=== PATIENT | female | born 1990 | race Two or more races ===

== ENCOUNTER 2016-11-05 20:24 | Inpatient (IN) | payer BC ==
[~2016-11-05] VITALS: Ht 157.5 cm; Wt 95.3 kg
[~2016-11-05 20:24] MED LIST: PREN0.01 PO
[2016-11-05] MEDS ORDERED: LACTATED RINGER'S 1000 ML INJ 1,000 ML IV PRN (20:26)
[2016-11-05] MEDS ORDERED: OXYTOCIN 30 UNITS-500ML PREMIX 500 ML IV ONE (20:30)
[2016-11-05] MEDS ORDERED: MINERAL OIL 10 ML VIAL TOPICAL PRN (20:30)
[2016-11-05] MEDS ORDERED: LIDOCAINE HCL 1% 50 ML VIAL INFIL PRN (20:30)
[2016-11-05] MEDS ORDERED: DINOPROSTONE 10 MG VAG INSERT VAGINAL ONE (20:30)
[2016-11-05] MEDS ORDERED: SODIUM CHLORID 0.9% 500 ML INJ 500 ML IV PRN (20:30)
[2016-11-05] MEDS ORDERED: LIDOCAINE HCL 1% 50 ML VIAL I-DERMAL PRN (20:30)
[2016-11-05] MEDS ORDERED: CITRIC ACID-SODIUM CITRATE LIQ 30 ML UDC PO SCH (20:30)
[2016-11-05] MEDS ORDERED: SODIUM CHLOR 0.9% 1000 ML INJ 1,000 ML IV PRN (20:46)
--- NOTE | 2016-11-05 20:46 | HHI.HP ---
HPI Chief Complaint decreassed movement Date Seen: Nov 05, 2016 Travel History International Travel<30 Days: No Contact w/Intl Traveler<30Days: No Known Affected Area: No History of Present Illness HPI 26 yo p0 with iup at 37 wk presented to clinic today with several complaints. She has ghtn and has been monitoring bp at home, she was seen in triage 2 days ago. She turned in a 24 hour urine today.. sbp 140's on home monitoring. she also has c/o b lurry vision and headache intermittently. She has felt weak , fatigued and nauseated. She feels so tired and weak she states that she is afraid to ambulate or do anything on her own. She has additionally had decreased movement, bpp 8/8 in office. Para: 0 : 2 Miscarriage: 1 History Past Medical History Narrative Medical asthma varicella non immune Obstetric History Obstetric History cab Past Surgical History Narrative Surgical adenoids,cholecystectomy, eustation tube placement Family History Family History: Negative Social History Alcohol Use: No Tobacco Use: No Substance Abuse: No Allergies-Medications (Allergen,Severity, Reaction): Coded Allergies: No Known Allergies (Unverified , 11/08/16) Home Meds Reported Medications Ranitidine (Zantac 75)75 Mg [id number] Mg PO BID Ref 0 Take 30 to 60 minutes before eating food or drinking beverages that cause heartburn. 11/06/16 Albuterol 18 GM Inh (Ventolin Hfa 18 GM Inh)90 Mcg/Act Aer2 Puff INH Q4H PRN ( SHORTNESS OF BREATH) #1 INHALER Ref 0 11/06/16 Vitamins 1 Tab PO 08/07/16 Review of Systems General / Constitutional: No: Fever, Weight Gain, Chills, Other Eyes: Blurred Vision, Visual changes, No: Diploplia, Pain, Photophobia HENT: Headaches, No: Vertigo, Lightheadedness Cardiovascular: No: Irregular Rhythm, Chest Pain or Discomfort, Palpitations, Tachycardia, Syncope, Varicosities, Edema, Cyanosis Respiratory: No: Cough, Short of Breath, Other Gastrointestinal: Nausea, No: Vomiting, Diarrhea Genitourinary: No: Decreased Urinary Output, Oliguria Musculoskeletal: No: Limited ROM, Weakness, Cramping, Edema, Pain Skin: No Rash, No Itching, No Dryness, No Lumps, No Change in Pigmentation, No Change in Nails, No Alopecia, No Lesions Neurologic: No: Weakness, Dizziness, Syncope, Focal Abnormalities, Headache, Slurred Speech, Seizures Psychiatric: No: Depression, Suicidal Ideations, Homicidal Ideation Endocrine: No: Heat Intolerance, Cold Intolerance, Polydipsia, Polyuria, Other Physical Exam Narrative GENERAL: Well-nourished, well-developed patient. SKIN: Warm and dry. HEAD: Normocephalic and atraumatic. EYES: No scleral icterus. No injection or drainage. ENT: No nasal drainage noted. Mucous membranes pink. Airway patent. NECK: Supple, trachea midline. No JVD. CARDIOVASCULAR: Regular rate and rhythm without murmurs, gallops, or rubs. RESPIRATORY: Breath sounds equal bilaterally. No accessory muscle use. BREASTS: Bilateral exam showed no masses , no retractions, no nipple discharge. ABDOMEN/GI: Abdomen soft, non-tender, bowel sounds present, no rebound, no guarding Gravid to [-] weeks size Fundal Height: 40 GENITOURINARY: External Genitalia: intact and normal in appearance cl/th/hi Presentation: ceph Membranes: [intact Uterine Contractions: irreg FHT's: Category: I EXTREMITIES: No cyanosis or edema. BACK: Nontender without obvious deformity. No CVA tenderness. NEUROLOGICAL: Awake and alert. Motor and sensory grossly within normal limits. Five out of 5 muscle strength in all muscle groups. Normal speech. Data Data Vital Signs Reviewed: Yes Orders Admit To Inpatient (11/05/16 ) Vital Signs (Adult) .Per protocol (11/05/16 20:26) Activity Oob Ad Jacquie (11/05/16 20:26) ^ Heart (11/05/16 20:26) ^ Amnioinfusion (11/05/16 20:26) Urinary Catheter Management .ONCE (11/05/16 20:26) Lactated Ringer's 1000 Ml Inj (Lr 1000 M (11/05/16 20:26) Lactated Ringer's 1000 Ml Inj (Lr 1000 M (11/05/16 20:26) Sodium Chlorid 0.9% 500 Ml Inj (Ns 500 M (11/05/16 20:30) Sodium Chlor 0.9% 1000 Ml Inj (Ns 1000 M (11/05/16 20:46) Lidocaine 1% Inj (50 Ml) (Xylocaine 1% I (11/05/16 20:30) Citric Acid-Sodium Citrate Liq (Bicitra (11/05/16 20:30) Fentanyl Inj (Fentanyl Inj) (11/05/16 20:30) Fentanyl Inj (Fentanyl Inj) (11/05/16 20:30) Complete Blood Count With Diff (11/05/16 20:26) Hold Clot (11/05/16 20:26) Abo/Rh Blood Type (11/05/16 20:26) Urinalysis - C+S If Indicated (11/05/16 20:26) Resp Oxygen Non Rebreathe Mask (11/05/16 ) ^ Epidural / Intrathecal Infus (11/05/16 20:26) Oxytocin 30 Units-500ml Premix (Pitocin (11/05/16 20:30) Lidocaine 1% Inj (50 Ml) (Xylocaine 1% I (11/05/16 20:30) Light Mineral Oil (Muri-Lube Oil) (11/05/16 20:30) Diet Liquid (11/06/16 Breakfast) Activity Oob Ad Jacquie (11/05/16 20:26) ^ Labor Induction (11/05/16 20:26) ^ Vaginal Insert (11/05/16 20:26) ^ Vaginal Lavage (11/05/16 20:26) ^ Heart (11/05/16 20:26) Dinoprostone Vag Insert (Cervidil Vag In (11/05/16 20:30) Inpatient Certification (11/05/16 ) Specimen To Be Collected PRN (11/05/16 20:26) Assessment/Plan Problem List: (1) Decreased movement affecting management of in third trimester (2) Abnormal glucose tolerance affecting , antepartum (3) Gestational [-induced] hypertension without significant proteinuria , third trimester Assessment and Plan 26 yo P0 with iup at 37 wk being admitted for iol secondary to gestational hypertension, decreased movement. 1 iol will start with cervidil 2 ghtn will order labs and watch bp, signs of severity 3 abn 1 hr gct, neg 3 hr gtt 4 fetus cephalic, decreased fm, bpp 8/8 in clinic Agutsina Flores MD Nov 05, 2016 20:46
[2016-11-05 20:52] VITALS: TEMP 98.3
[2016-11-05 20:54] VITALS: BP 139/78; PULSE 92
[2016-11-05 21:00] VITALS: RESP 18
[2016-11-05] MEDS: LACTATED RINGER'S 1000 ML INJ 1,000 ML IV SCH (21:47)
[2016-11-05 22:16] LABS: BACTERIA, URINE RARE /hpf; BLOOD, URINE NEG (NEG); COMMENT (UR) CULT NOT INDICATED; CULTURE IF INDICATED CULT NOT INDICATED; GLUCOSE,URINE NEG (NEG); KETONE, URINE NEG (NEG); MUCUS URINE FEW /lpf (OCC); NITRITE,URINE NEG (NEG); PH, URINE 6.5 (5.0-8.5); SQUAMOUS EPITHELIAL CELL URINE 3 /hpf (0-5); URINE COLOR YELLOW (YELLW/STRAW)
[2016-11-05 22:19] LABS: AUTOMATED NEUTROPHIL # 6.6 TH/MM3 (1.8-7.7); BASOPHIL % 0.3 % (0.0-2.0); EOSINOPHIL # 0.1 TH/MM3 (0-0.4); EOSINOPHIL % 0.5 % (0.0-4.0); HEMATOCRIT 33.2 % (35.0-46.0); HEMO FLAGS DIFF FINAL; LYMPHOCYTE # 2.5 TH/MM3 (1.0-4.8); MEAN CELL VOLUME 84.8 FL (80.0-100.0); MEAN CORPUSCULAR HEMOGLOBIN 28.4 PG (27.0-34.0); MEAN CORPUSCULAR HGB CONC 33.6 % (32.0-36.0); MONO % 8.8 % (0.0-8.0); NEUT % 65.4 % (16.0-70.0); PLATELET COUNT 272 TH/MM3 (150-450); RED BLOOD COUNT 3.92 MIL/MM3 (4.00-5.30); RED CELL DISTRIBUTION WIDTH 13.8 % (11.6-17.2); WHITE BLOOD COUNT 10.1 TH/MM3 (4.0-11.0)
[2016-11-05 22:40] LABS: ALKALINE PHOSPHATASE 170 U/L (45-117); ALT (GPT) 32 U/L (10-53); ANION GAP 7 MEQ/L (5-15); AST (GOT) 15 U/L (15-37); BICARBONATE 24.7 MEQ/L (21.0-32.0); BLOOD UREA NITROGEN 12 MG/DL (7-18); CHLORIDE 104 MEQ/L (98-107); GLOMERULAR FILTRATION RATE 121 ML/MIN (>89); POTASSIUM 4.2 MEQ/L (3.5-5.1); SODIUM (NA) 136 MEQ/L (136-145); TOTAL BILIRUBIN ADULT 0.1 MG/DL (0.2-1.0)
[2016-11-05] MEDS ORDERED: ONDANSETRON HCL 4 MG/2 ML VIAL ONE (23:36)
[2016-11-06] VITALS (37 sets, daily range): BP systolic 102–145; BP diastolic 42–84; PULSE 61–110; RESP 16–18; TEMP 97.7–98.3
[2016-11-06] MEDS ORDERED: diphenhydrAMINE HCL 50 MG/ML VIAL IV ONE ×2 (00:10→00:45)
[2016-11-06] MEDS ORDERED: diphenhydrAMINE HCL 50 MG/ML VIAL ONE (00:36)
[2016-11-06] MEDS ORDERED: OXYTOCIN 30 UNITS/NS 500ML PREMIX IV SCH ×3 (00:45→06:00)
[2016-11-06] MEDS ORDERED: ONDANSETRON HCL 4 MG/2 ML VIAL IV PUSH PRN (00:45)
[2016-11-06] MEDS ORDERED: fentaNYL 2MCG-BUPIV 0.125% INJ 100 ML ONE (00:55)
[2016-11-06] MEDS ORDERED: NO SYSTEM NARCOTICS XX PRN (02:00)
[2016-11-06] MEDS ORDERED: ePHEDrine/NS 50 MG/5 ML SYR IV PRN (02:00)
[2016-11-06] MEDS ORDERED: DO NOT ADMINISTER ANTICOAGULANTS XX PRN (02:00)
[2016-11-06] MEDS: LACTATED RINGER'S 1000 ML INJ 1,000 ML IV SCH ×2 (04:26→20:19)
[2016-11-06] MEDS ORDERED: VENTAER INH (04:59)
[2016-11-06] MEDS ORDERED: ZANTTAB9 PO (05:00)
[2016-11-06] MEDS: fentaNYL 2MCG-BUPIV 0.125% INJ 100 ML EPIDURAL SCH (20:19)
[2016-11-07] MEDS: LACTATED RINGER'S 1000 ML INJ 1,000 ML IV SCH ×2 (01:51→07:44)
[2016-11-07] MEDS: fentaNYL 2MCG-BUPIV 0.125% INJ 100 ML EPIDURAL SCH ×2 (01:51→07:44)
--- NOTE | 2016-11-07 08:54 | PD.LABORPN ---
Subjective Subjective Late entry, note for yesterday's care (11/06/16) pt denies CHAVEZ, vision changes, edema, RUQ pain or nausea; feeling irregular contractions, no LOF or VB, good FM, pain minimal with epidural in place Objective Vital Signs Vital Signs Date Time Temp Pulse Resp B/P Pulse Ox O2 Delivery O2 Flow Rate FiO2 11/07/16 01:52 16 11/07/16 01:51 16 Objective Pelvic Exam: Cervix: [posterior] Dilatation: [4-5] Effacement: [50] Station: [-3] Presentation: [vtx] Membranes: [intact Uterine Contractions: [q2-4 min] FHT's: Category: [I] Baseline: [130s] Reactive: [y] Variability: [y] Decels: [n] Assessment/Plan Problem List: (1) Gestational [-induced] hypertension without significant proteinuria , third trimester (2) Decreased movement affecting management of in third trimester (3) Abnormal glucose tolerance affecting , antepartum Assessment and Plan 26 yo at 37w2d, admit 11/05/[address] Flores for new diagnosis gestational hypertension and concerning symptoms 1) GHTN: admitted for labor induction due to new diagnosis and symptoms, started with cervidil overnight but had to be removed immediately due to pt c/o "burning pain"; suspect possible allergy; pitocin started overnight, pt with minimal cervical change, continue induction 2) varicella non-immune 3) abnl 1hr GTT, 3hr wnl 4) GBS neg 5) mild asthma, albuterol INH prn 6) status: female, vertex, Cat I tracing Evy Szymanski MD Nov 07, 2016 08:54
[2016-11-07] MEDS ORDERED: ALUMINUM/MAGNESIUM/SIMETH 30 ML CUP PO PRN (09:00)
[2016-11-07] MEDS ORDERED: ACETAMINOPHEN 325 MG TAB PO PRN (09:00)
[2016-11-07] MEDS ORDERED: ZOLPIDEM TARTRATE 5 MG TAB PO PRN (09:00)
[2016-11-07] MEDS ORDERED: MULTIVIT/MIN/PREN/FOL AC/IRON PRENATAL TAB PO SCH (09:00)
--- NOTE | 2016-11-07 09:03 | HHI.PR ---
OFFICE COORDINATOR RECEPTIONIST Note Note To bedside to discuss plan of care with patient and : Pt admitted overnight 11/05/16 for new diagnosis in office of [place] with symptoms of headache, blurry vision, decreased movement. BP in office normal and no portein on dip; protein has fluctuated from none to trace in office. On admission patient's symptoms resolved with bedrest and BPs almost all completely normal. Pt did not tolerate cervidil insert overnight on admission so pitocin was started; after >36h of pitocin pt has had minimal change from 4-5/50/-3 station, is intact, Cat I tracing. Due to resolution of symptoms, Cat I tracing, no cervical change despite consistent contractions q3- 4 min over past 24 h, discussed with patient and option of stop labor induction, repeat 24h urine, make AP status, continue to monitor labs & BP and if signs of worsening will re-evaluate for delivery. patient and amenable to plan of care, will turn off and remove epidural, order heart healthy diet, transfer to AP. Evy Szymanski MD Nov 07, 2016 09:02
[2016-11-07 10:59] LABS: AUTOMATED NEUTROPHIL # 13.9 TH/MM3 (1.8-7.7); BASOPHIL % 0.3 % (0.0-2.0); HEMATOCRIT 37.2 % (35.0-46.0); HEMO FLAGS DIFF FINAL; LYMPH % 11.6 % (9.0-44.0); LYMPHOCYTE # 1.9 TH/MM3 (1.0-4.8); MEAN CELL VOLUME 84.4 FL (80.0-100.0); MEAN CORPUSCULAR HEMOGLOBIN 28.2 PG (27.0-34.0); MEAN CORPUSCULAR HGB CONC 33.5 % (32.0-36.0); MONO % 4.4 % (0.0-8.0); NEUT % 83.7 % (16.0-70.0); PLATELET COUNT 261 TH/MM3 (150-450); RED BLOOD COUNT 4.41 MIL/MM3 (4.00-5.30); RED CELL DISTRIBUTION WIDTH 14.3 % (11.6-17.2); WHITE BLOOD COUNT 16.6 TH/MM3 (4.0-11.0)
[2016-11-07 11:15] LABS: BICARBONATE 21.3 MEQ/L (21.0-32.0); POTASSIUM 3.6 MEQ/L (3.5-5.1); URIC ACID 5.7 MG/DL (2.6-6.0)
[2016-11-07 13:47] LABS: ALT (GPT) 47 U/L (10-53); AST (GOT) 32 U/L (15-37)
[2016-11-07] MEDS ORDERED: TERBUTALINE INJ 1 MG/ML AMP SQ PRN (20:45)
[2016-11-07] MEDS ORDERED: diphenhydrAMINE HCL 50 MG/ML VIAL IV ONE (20:45)
[2016-11-07] MEDS ORDERED: ACETAMINOPHEN 1000 MG/100 ML VIAL IV ONE (20:45)
[2016-11-07 21:34] LABS: AUTOMATED NEUTROPHIL # 11.1 TH/MM3 (1.8-7.7); BASOPHIL # 0.1 TH/MM3 (0-0.2); BASOPHIL % 0.4 % (0.0-2.0); EOSINOPHIL # 0.1 TH/MM3 (0-0.4); EOSINOPHIL % 0.4 % (0.0-4.0); HEMATOCRIT 33.6 % (35.0-46.0); HEMO FLAGS DIFF FINAL; LYMPH % 17.8 % (9.0-44.0); LYMPHOCYTE # 2.6 TH/MM3 (1.0-4.8); MEAN CELL VOLUME 83.3 FL (80.0-100.0); MEAN CORPUSCULAR HGB CONC 33.6 % (32.0-36.0); MONO % 5.2 % (0.0-8.0); NEUT % 76.2 % (16.0-70.0); PLATELET COUNT 242 TH/MM3 (150-450); RED BLOOD COUNT 4.03 MIL/MM3 (4.00-5.30); WHITE BLOOD COUNT 14.6 TH/MM3 (4.0-11.0)
[2016-11-07 22:08] LABS: ALKALINE PHOSPHATASE 180 U/L (45-117); ALT (GPT) 41 U/L (10-53); ANION GAP 8 MEQ/L (5-15); AST (GOT) 33 U/L (15-37); BICARBONATE 23.6 MEQ/L (21.0-32.0); BLOOD UREA NITROGEN 8 MG/DL (7-18); CHLORIDE 104 MEQ/L (98-107); GLOMERULAR FILTRATION RATE 110 ML/MIN (>89); SODIUM (NA) 136 MEQ/L (136-145); TOTAL BILIRUBIN ADULT 0.3 MG/DL (0.2-1.0)
[2016-11-07] MEDS ORDERED: LACTATED RINGER'S 1000 ML INJ 1,000 ML IV SCH (22:42)
[2016-11-07] MEDS ORDERED: LACTATED RINGER'S 1000 ML INJ 1,000 ML IV PRN (22:42)
[2016-11-07] MEDS ORDERED: OXYTOCIN 30 UNITS-500ML PREMIX 500 ML IV ONE (22:45)
--- NOTE | 2016-11-07 22:45 | HHI.PR ---
CERTIFIED NURSE AIDE Note Note Pt complains of labor pains, now elly q3 min. Repeat labs so no deterioration, BPs remain normal to mild range, no clear diagnosis yet of PreEclampsia. Continue 24h urine collection, at this time due to contractions and suspected labor will transfer from AP to labor, epidural ordered as needed for pain. Cat I tracing currently, expectant management in labor for now. Evy Szymanski MD Nov 07, 2016 22:45
[2016-11-07] MEDS ORDERED: fentaNYL 2MCG-BUPIV 0.125% INJ 100 ML ONE (23:28)
[2016-11-08] MEDS ORDERED: fentaNYL 2MCG-BUPIV 0.125% INJ 100 ML ONE ×2 (05:31→10:08)
[2016-11-08 09:55] LABS: CREAT 24 TIMED 55.1 MG/DL; URINE TOTAL PROTEIN TIMED 42.8 MG/DL
[2016-11-08 10:05] LABS: CALCIUM - URINE TIMED LESS THAN 5.0 MG/DL
[2016-11-08] MEDS ORDERED: OXYTOCIN 30 UNITS-500ML PREMIX 500 ML IV SCH (10:45)
[2016-11-08] MEDS ORDERED: LACTATED RINGER'S 1000 ML INJ 1,000 ML IV ONE (11:35)
--- NOTE | 2016-11-08 11:55 | PD.LABORPN ---
Subjective Subjective Pt feeling light headed. had CHAVEZ and blurry vision yesterday. She is not feeling contractions any more. Still has vaginal pain and burning despite epidural. Was crying with last vaginal exam. does not want any more vaginal exams. Does not want any more pain and would like to have a CD as she did not dilate with over 36 hour induction. Objective Objective Vitals 130-150's/80-90's Pelvic Exam: declined. cephalic, intact. FHT CAT I, no uterine contractions. GEN NAD RESP CTAB Reflexes brisk, no clonus Assessment/Plan Problem List: (1) Gestational [-induced] hypertension without significant proteinuria , third trimester (2) Decreased movement affecting management of in third trimester (3) Abnormal glucose tolerance affecting , antepartum Assessment and Plan 26 yo withiup at 37w3d admitted for iol for ghtn. Given pt had normalized BP and had made no progress with pitocin over 36 hour induction (she had allergic reaction to cervidil), she was made AP status for collection of 24 hour urine. She then developed contractions and was made labor status again. Since then, her bp has increased, she had an isolated DBP of 110, remainder of bp in mild range. 24 hour urine with over 900mg of protein. Given development of pre-eclampsia, pt failed attempted induction of labor, and pt desire for cd, will proceed with primary cd. R/B/A discussed with pt. AQA, consents signed on chart. Will give magnesium pp. Agustina Flores MD Nov 08, 2016 11:55
[2016-11-08] MEDS ORDERED: LACTATED RINGER'S 1000 ML INJ 1,000 ML IV SCH ×3 (12:05→20:06)
[2016-11-08] MEDS ORDERED: ceFAZolin 2 GM PREMIX 50 ML IV ONE (12:45)
[2016-11-08] MEDS ORDERED: CITRIC ACID-SODIUM CITRATE LIQ 30 ML UDC PO SCH (13:15)
[2016-11-08] MEDS ORDERED: OXYTOCIN 10 UNIT/ML AMP ONE (13:34)
[2016-11-08] MEDS ORDERED: EPIDURAL-DIPHENHYDRAMINE HCL 50 MG CAP PO PRN (14:00)
[2016-11-08] MEDS ORDERED: EPIDURAL-DIPHENHYDRAMINE HCL 50 MG/ML VIAL IV PUSH PRN (14:00)
[2016-11-08] MEDS ORDERED: EPIDURAL-NALOXONE HCL 0.4 MG/ML AMP IV PRN (14:00)
[2016-11-08] MEDS ORDERED: EPIDURAL-DO NOT ADMINISTER ANTICOAGULANTS XX PRN (14:00)
[2016-11-08] MEDS ORDERED: EPIDURAL-NO SYSTEMIC NARCOTICS XX PRN (14:00)
[2016-11-08] MEDS ORDERED: ONDANSETRON HCL 4 MG/2 ML VIAL ONE (14:14)
[2016-11-08] MEDS ORDERED: MORPHINE SULFATE PF 5 MG/10 ML VIAL ONE (14:14)
[2016-11-08] MEDS ORDERED: LACTATED RINGER'S 1,000 ML BAG IV ONE (14:43)
[2016-11-08] MEDS ORDERED: CALCIUM GLUCONATE 10% 1 GM/10 ML VIAL IV PUSH PRN (15:00)
[2016-11-08] MEDS ORDERED: SODIUM CHLORIDE 0.9% FLUSH 5 ML FLUSH IV PRN ×2 (15:00→15:15)
[2016-11-08] MEDS ORDERED: MAGNESIUM SULFATE 4 GM PREMIX 100 ML IV ONE (15:00)
--- NOTE | 2016-11-08 15:13 | PD.OB.DELI ---
Procedure Note Section Procedure Pre Op Diagnosis: (1) Pre-eclampsia during in third trimester, antepartum (2) Abnormal glucose tolerance affecting , antepartum (3) Failed induction of labor Post Op Diagnosis: (1) Pre-eclampsia during in third trimester, antepartum (2) Abnormal glucose tolerance affecting , antepartum (3) Failed induction of labor Performed by Agustina Flores Procedure: Primary Low Transverse Sec Indication for delivery: Other (failed iol) Informed consent obtained: For anesthesia, For procedure Confirmed correct: Patient, Procedure, Site, Time-out taken Anesthesia: Epidural Medication prior to procedure: As documented in eMAR Monitoring during procedure: Blood pressure monitoring, Pulse oximetry Urinary catheter: Inserted using sterile technique, To dependent drainage Sterile preparation: With 2% chlorexidine (Hibiclens) Position: Supine with wedge to right side, Supine with safety belt applied Operative Features Skin Incision: Pfannenstiel Uterine Incision: Low transverse w/knife / blunt ext Membranes Ruptured: Appearance of fluid (clear) Presentation: Other (OT) Delivery of infant: Uneventful, Other (0.75 cm laceration of head right) : Male One Minute : 8 Five Minute : 9 Weight: 2570g Status of infant: Viable, Cord blood Placenta delivered: Intact Medications: Antibiotics, Oxytocin Estimated blood loss: 500ml Procedure tolerated: Fair (Nitrous inhalation given for improved pain control) Maternal Condition: Stable Baby Complications: Laceration (right mandaeism, 0.75cmsuperficial, no bleeding after pressure applied) Condition: Stable Procedure in detail see dictation Agustina Flores MD Nov 08, 2016 15:13
[2016-11-08] MEDS ORDERED: SIMETHICONE 80 MG CHEWABLE TAB PO PRN (15:15)
[2016-11-08] MEDS ORDERED: ACETAMINOPHEN 325 MG TAB PO PRN (15:15)
[2016-11-08] MEDS ORDERED: OXYTOCIN 30 UNITS-500ML PREMIX 500 ML IV ONE (15:15)
[2016-11-08] MEDS ORDERED: ONDANSETRON HCL 4 MG/2 ML VIAL IV PUSH PRN (15:15)
[2016-11-08] MEDS ORDERED: ACETAMINOPHEN 1000 MG/100 ML VIAL IV ONE (15:15)
[2016-11-08] MEDS ORDERED: MAGNESIUM SULFATE 40 GM PREMIX 1,000 ML IV SCH (16:00)
[2016-11-08] MEDS ORDERED: SODIUM CHLORIDE 0.9% FLUSH 5 ML FLUSH IV SCH (21:00)
[2016-11-08] MEDS: SODIUM CHLORIDE 0.9% FLUSH 5 ML FLUSH IV SCH (21:00)
[2016-11-09] MEDS ORDERED: OXYTOCIN 30 UNITS-500ML PREMIX 500 ML IV PRN (01:15)
[2016-11-09 05:52] LABS: AUTOMATED NEUTROPHIL # 6.9 TH/MM3 (1.8-7.7); BASOPHIL % 0.1 % (0.0-2.0); EOSINOPHIL % 0.2 % (0.0-4.0); HEMATOCRIT 32.9 % (35.0-46.0); HEMO FLAGS DIFF FINAL; LYMPH % 15.6 % (9.0-44.0); LYMPHOCYTE # 1.4 TH/MM3 (1.0-4.8); MEAN CELL VOLUME 83.9 FL (80.0-100.0); MEAN CORPUSCULAR HEMOGLOBIN 28.7 PG (27.0-34.0); MEAN CORPUSCULAR HGB CONC 34.2 % (32.0-36.0); MONO % 5.9 % (0.0-8.0); NEUT % 78.2 % (16.0-70.0); PLATELET COUNT 211 TH/MM3 (150-450); RED BLOOD COUNT 3.93 MIL/MM3 (4.00-5.30); RED CELL DISTRIBUTION WIDTH 14.2 % (11.6-17.2); WHITE BLOOD COUNT 8.9 TH/MM3 (4.0-11.0)
[2016-11-09 06:27] LABS: BICARBONATE 24.7 MEQ/L (21.0-32.0); POTASSIUM 3.7 MEQ/L (3.5-5.1); TOTAL BILIRUBIN ADULT 0.3 MG/DL (0.2-1.0); URIC ACID 4.9 MG/DL (2.6-6.0)
[2016-11-09 06:32] LABS: CALCIUM-PROTEIN CORRECTED 7.3 MG/DL (8.5-10.1)
[2016-11-09] MEDS: oxyCODONE/ACETAMINOPHEN 5 MG/325 MG TAB PO PRN ×3 (07:44→20:15)
--- NOTE | 2016-11-09 10:41 | HHI.OB ---
Subjective Post Operative Day: 1 Remarks magui davenport this am, has not voided yet. Pain well controlled. Has only had liquid diet. no flatus yet. Objective Vitals/I&O BP under 130's/80's Result Diagram: 11/09/16 0535 11/09/16 0535 Objective Remarks GENERAL: Well-nourished, well-developed patient. CARDIOVASCULAR: Regular rate and rhythm without murmurs, gallops, or rubs. RESPIRATORY: Breath sounds equal bilaterally. No accessory muscle use. ABDOMEN/GI: Abdomen soft, non-tender, bowel sounds present. Incision: dressing Clean, dry and intact. Fundus: Firm, non-tender at umbilicus. GENITOURINARY: Light to moderate bleeding. EXTREMITIES: No cyanosis or edema, non-tender, without signs of DVT. Medications and IVs Current Medications Medications (Trade) Dose Ordered Sig/Priti Route Start Time Stop Time Status Last Admin Al Hydrox/Mg Hydrox/ Simethicone 30 ml 30 ml QID PRN PO 11/07/16 09:00 Oxytocin 500 ml @ 0 mls/hr TITRATE IV 11/08/16 10:45 (Lr 1000 ml Inj) 1,000 ml @ 75 mls/hr [id number] IV 11/08/16 15:00 (NS Flush) 2 ml UNSCH PRN IV 11/08/16 15:00 IV Flush 2 ml 2 ml BID IV 11/08/16 21:00 (Magnesium Sulfate 40 Gm Premix) 1,000 ml @ 50 mls/hr Q20H IV 11/08/16 16:00 11/08/16 17:00 Calcium Gluconate 1 gm 1 gm UNSCH PRN IV PUSH 11/08/16 15:00 (Lr 1000 ml Inj) 1,000 ml @ 100 mls/hr Q10H IV 11/08/16 20:06 11/09/16 16:05 (Mylicon Chew) 80 mg QID PRN PO 11/08/16 15:15 (Tylenol) 650 mg Q6H PRN PO 11/08/16 15:15 (Motrin) 600 mg Q6H PRN PO 11/08/16 15:15 (Percocet 5-325 Mg) 1 tab Q4H PRN PO 11/08/16 15:15 (Percocet 5-325 Mg) 2 tab Q4H PRN PO 11/08/16 15:15 11/09/16 07:44 (Denise-Colace) 2 tab Q12H PRN PO 11/08/16 15:15 (M-M-R Ii Inj) 0.5 ml ONCE ONCE SQ 11/09/16 16:00 11/09/16 16:01 (Boostrix Inj) 0.5 ml ONCE ONCE IM 11/09/16 16:00 11/09/16 16:01 (Zofran Inj) 4 mg Q6H PRN IV PUSH 11/08/16 15:15 Miscellaneous Information NO SYSTEMIC NARCOTICS TO BE GIVEN FO... UNSCH PRN XX 11/08/16 14:00 11/09/16 13:59 (Narcan Inj) 0.4 mg UNSCH PRN IV 11/08/16 14:00 11/09/16 13:59 (Benadryl Inj) 25 mg Q6H PRN IV PUSH 11/08/16 14:00 11/09/16 13:59 (Benadryl) 50 mg Q6H PRN PO 11/08/16 14:00 11/09/16 13:59 Miscellaneous Information ALL NURSING DEPARTMENTS UNSCH PRN XX 11/08/16 14:00 11/09/16 13:59 Assessment/Plan Problem List: (1) Gestational [-induced] hypertension without significant proteinuria , third trimester (2) Decreased movement affecting management of in third trimester (3) Abnormal glucose tolerance affecting , antepartum Assessment and Plan 24 [id number] s/p primary cd for failed iol and pre-eclampsia POD 1- cont routine care, encourage ambulation, advance diet, still needs to void Pre-e- normal bp presently. s/p 12 hr of magnesium ppAgustina Myles MD Nov 09, 2016 10:41
--- NOTE | 2016-11-09 10:58 | HHI.DCPOC ---
Discharge Care Plan Diagnosis: (1) Pre-eclampsia during in third trimester, antepartum (2) Failed induction of labor (3) delivery delivered Your Health Problems Are: Incisions/drains delivery Report Symptoms to Your Doctor -Temperate above 100.5 degrees -Redness, of incision or excessive or foul smelling drainage -Unusual pain or calf pain -Increased vaginal bleeding -Painful or difficulty urinating -Feelings of extreme sadness or anxiety after 2 weeks Goals to Promote Your Health * To prevent worsening of your condition and complications * To maintain your health at the optimal level Directions to Meet Your Goals Take your medications as prescribed Follow your dietary instruction Follow activity as directed Ensure plenty of rest for recovery Drink fluids for hydration Keep your appointments as scheduled Take your immunizations and boosters as scheduled If your symptoms worsen call your PCP, if no PCP go to Urgent Care Center or Emergency Room Smoking is Dangerous to Your Health. Avoid second hand smoke Call the 24-hour crisis hotline for domestic abuse at Agustina Flores MD Nov 09, 2016 10:58
[2016-11-09] MEDS ORDERED: OXYC1TAB63 PO (10:59)
[2016-11-09] MEDS ORDERED: SENN1TAB PO (10:59)
[2016-11-09] MEDS ORDERED: IBUP-232 PO (10:59)
[2016-11-09] MEDS: DOCUSATE SODIUM 50 MG/SENNA 8.6 MG TAB PO PRN (13:03)
[2016-11-09] MEDS: IBUPROFEN 600 MG TAB PO PRN ×2 (13:03→20:15)
--- NOTE | 2016-11-09 15:04 | MP ---
cc: AGUSTINA FLORES MD DATE OF SURGERY: 11/08/2016 PREOPERATIVE DIAGNOSIS 1. Preeclampsia. 2. Abnormal glucose tolerance affecting . 3. Failed induction of labor. POSTOPERATIVE DIAGNOSIS 1. Preeclampsia. 2. Abnormal glucose tolerance affecting . 3. Failed induction of labor. PROCEDURE PERFORMED Primary low transverse section. SURGEON Agustina Flores ANESTHESIA Epidural and inhaled nitrous. ESTIMATED BLOOD LOSS 500 mL. IV FLUIDS 200 mL lactated Ringer's. URINE OUTPUT 200 mL of clear yellow urine. COUNTS Sponge, needle and instrument correct x3. PREOPERATIVE ANTIBIOTICS Ancef 2 grams given IV pre incision. DVT PROPHYLAXIS SCDs to bilateral extremities. COMPLICATIONS Suboptimal pain control during surgery. 0.5 cm laceration to right forehead of the baby. Specimen cord blood INTRAOPERATIVE FINDINGS Viable female infant, Apgars of 8 and 9 at 1 minute and 5 minutes respectively, weight 2570 grams. Placenta intact. normal uterus tubes and ovaries. INDICATIONS The patient is a 26-year-old, G2, P0-0-1-0, with an intrauterine at 37 weeks and 3 days, who was admitted for induction 3 days prior secondary to gestational hypertension and proteinuria. She had a 36-hour induction with Pitocin and had minimal cervical change to 4 cm. During that time she had normalization of her blood pressures. She was transferred to the antepartum service by a different physician for performance of a 24-hour urine. A 24-hour urine confirmed the diagnosis of preeclampsia with over 900 mg of protein. The patient had intermittent symptoms of headache, blurry vision, weakness and nausea over the last 3-4 days. Additionally, she had elevation in her blood pressure. After she was transferred to the antepartum service she also had spontaneous contractions and was transferred to Labor for further management. The patient stated that despite placement of an epidural she had severe vaginal pain. She had a trial of Cervidil and did not want any further vaginal exams or continued induction of labor. She desired a primary delivery. The risks, benefits and alternatives of induction and were discussed with the patient and her , and the family did desire a primary delivery. Consents were signed on chart. PROCEDURE IN DETAIL After reviewing informed consent the patient was taken to the operating room where epidural was re-dosed. The level was checked and noted to be adequate. Time out was taken. The abdomen was prepped and draped in normal sterile fashion. A Christianson was already in place. A skin incision was made with a scalpel, carried down to the underlying layer of fascia with the Bovie. The fascia was incised in the midline and this incision was extended bilaterally with Joiner scissors. The superior aspect of the fascial incision was grasped with Alvino clamps and the rectus muscle was dissected off bluntly as well as with the aid of Joiner scissors. The same was performed inferiorly. The rectus muscle was in the midline with a hemostat and then further extended bluntly. The peritoneum was entered sharply and extended bluntly. At this point the patient was complaining of severe pain. The surgery was stopped and she was given inhaled nitrous with some improvement in the pain. A bladder blade was inserted and the patient then complained of continued pain. The surgery was stopped at this point and discussed the option of repeat nitrous or general anesthesia, the patient elected to try the nitrous again. The bladder blade was re-inserted and the patient was doing well but was very anxious and was crying and moving. A low transverse uterine incision was made with a scalpel. The lower uterus segment was very thick and this was extended bluntly. The head was flexed and brought to the level of the hysterotomy. Gentle fundal pressure was used to deliver the rest of the body. A small laceration was noted on the baby evaluated by peds, did not require Steri-Strips or suture. This MD did offer to repair the laceration but found by the pediatric team not to be necessary. Pitocin was then started immediately after delivery of the . The placenta was delivered gentle cord traction and uterine massage. The uterus was exteriorized with moistened laparotomy sponges. The hysterotomy was repaired in two layers with #1 chromic running and locked, followed by an imbricating layer. The posterior and anterior cul-de-sacs were irrigated. The uterus was returned to the abdomen and good hemostasis was noted. The peritoneum was closed with 2-0 chromic in a running fashion. The fascia was closed with #1 Vicryl in a running fashion. The subcutaneous layer was irrigated and suctioned with good hemostasis. This layer was closed with 2-0 chromic in a running fashion. Subcuticular stitches were used to close the skin with 3-0monocryl. The patient was sent to PACU in stable condition. She is an acceptable candidate for . 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 Agustina Flores MD PE/MAGALIE /10:45 AM /2:37 PM MARLEE
[2016-11-09] MEDS ORDERED: MEASLES, MUMPS, RUBELLA VACCINE 0.5 ML VIAL SQ ONE (16:00)
[2016-11-09] MEDS ORDERED: DIPHTH/TETANUS/ACEL PERTUSSIS (BOOSTER) 0.5 ML VIAL/PFS IM ONE (16:00)
[2016-11-10] MEDS: oxyCODONE/ACETAMINOPHEN 5 MG/325 MG TAB PO PRN ×4 (02:06→20:31)
[2016-11-10] MEDS: DOCUSATE SODIUM 50 MG/SENNA 8.6 MG TAB PO PRN ×3 (02:06→20:31)
[2016-11-10] MEDS: IBUPROFEN 600 MG TAB PO PRN ×4 (02:06→20:31)
[2016-11-10] MEDS: SODIUM CHLORIDE 0.9% FLUSH 5 ML FLUSH IV SCH ×2 (02:07→21:00)
[2016-11-10 06:06] LABS: AUTOMATED NEUTROPHIL # 6.1 TH/MM3 (1.8-7.7); BASOPHIL % 0.2 % (0.0-2.0); EOSINOPHIL # 0.1 TH/MM3 (0-0.4); EOSINOPHIL % 0.9 % (0.0-4.0); HEMATOCRIT 30.6 % (35.0-46.0); HEMO FLAGS DIFF FINAL; LYMPH % 22.7 % (9.0-44.0); MEAN CELL VOLUME 84.7 FL (80.0-100.0); MEAN CORPUSCULAR HEMOGLOBIN 28.7 PG (27.0-34.0); MEAN CORPUSCULAR HGB CONC 33.9 % (32.0-36.0); MONO % 6.5 % (0.0-8.0); NEUT % 69.7 % (16.0-70.0); PLATELET COUNT 218 TH/MM3 (150-450); RED BLOOD COUNT 3.62 MIL/MM3 (4.00-5.30); RED CELL DISTRIBUTION WIDTH 14.5 % (11.6-17.2); WHITE BLOOD COUNT 8.8 TH/MM3 (4.0-11.0)
[2016-11-10 06:18] LABS: ANION GAP 9 MEQ/L (5-15); AST (GOT) 34 U/L (15-37); BICARBONATE 25.3 MEQ/L (21.0-32.0); BLOOD UREA NITROGEN 7 MG/DL (7-18); CHLORIDE 106 MEQ/L (98-107); GLOMERULAR FILTRATION RATE 148 ML/MIN (>89); POTASSIUM 3.9 MEQ/L (3.5-5.1); SODIUM (NA) 140 MEQ/L (136-145); URIC ACID 4.9 MG/DL (2.6-6.0)
[2016-11-10 06:26] LABS: ALKALINE PHOSPHATASE 146 U/L (45-117); ALT (GPT) 52 U/L (10-53); TOTAL BILIRUBIN ADULT 0.2 MG/DL (0.2-1.0)
--- NOTE | 2016-11-10 07:52 | HHI.OB ---
Subjective Post Operative Day: 2 Remarks s/p primary LTCD after failed IOL for PreEclampsia at 37 wks Objective Result Diagram: 11/10/16 0503 11/10/16 0503 Objective Remarks GENERAL: Well-nourished, well-developed patient. Resting in bed. CARDIOVASCULAR: Regular rate and rhythm without murmurs, gallops, or rubs. RESPIRATORY: Breath sounds equal bilaterally. No accessory muscle use. ABDOMEN/GI: Abdomen soft, non-tender, bowel sounds present. Incision: Clean, dry and intact. Fundus: Firm, non-tender at umbilicus. GENITOURINARY: Light bleeding. EXTREMITIES: No cyanosis or edema, non-tender, without signs of DVT. Medications and IVs Current Medications Medications (Trade) Dose Ordered Sig/Priti Route Start Time Stop Time Status Last Admin Al Hydrox/Mg Hydrox/ Simethicone 30 ml 30 ml QID PRN PO 11/07/16 09:00 Oxytocin 500 ml @ 0 mls/hr TITRATE IV 11/08/16 10:45 (Lr 1000 ml Inj) 1,000 ml @ 75 mls/hr [id number] IV 11/08/16 15:00 (NS Flush) 2 ml UNSCH PRN IV 11/08/16 15:00 IV Flush 2 ml 2 ml BID IV 11/08/16 21:00 11/10/16 02:07 (Magnesium Sulfate 40 Gm Premix) 1,000 ml @ 50 mls/hr Q20H IV 11/08/16 16:00 11/08/16 17:00 (Calcium Gluconate Inj) 1 gm UNSCH PRN IV PUSH 11/08/16 15:00 (Mylicon Chew) 80 mg QID PRN PO 11/08/16 15:15 (Tylenol) 650 mg Q6H PRN PO 11/08/16 15:15 (Motrin) 600 mg Q6H PRN PO 11/08/16 15:15 11/10/16 02:06 (Percocet 5-325 Mg) 1 tab Q4H PRN PO 11/08/16 15:15 11/10/16 02:06 (Percocet 5-325 Mg) 2 tab Q4H PRN PO 11/08/16 15:15 11/09/16 07:44 (Denise-Colace) 2 tab Q12H PRN PO 11/08/16 15:15 11/10/16 02:06 (Zofran Inj) 4 mg Q6H PRN IV PUSH 11/08/16 15:15 Assessment/Plan Problem List: (1) delivery delivered (2) Pre-eclampsia during in third trimester, antepartum (3) Decreased movement affecting management of in third trimester (4) Gestational [-induced] hypertension without significant proteinuria , third trimester (5) Abnormal glucose tolerance affecting , antepartum Assessment and Plan 24 [id number] POD#2 s/p primary cd for failed iol and pre-eclampsia at 37 wks POD 2 - cont routine care, encourage ambulation; moving slow s/p magnesium sulfate therapy yesterday for PreE, plan d/c tomorrow if continues to improve; labs improving and BP normal since delivery PreE - s/p magnesium sulfate therapy post-delivery, BPs normal since delivery, labs improving, voiding normally Discharge Planning routine, Wednesday11/11/15 Evy Szymanski MD Nov 10, 2016 07:52
[2016-11-10 21:45] VITALS: RESP 18
[2016-11-11] MEDS: DOCUSATE SODIUM 50 MG/SENNA 8.6 MG TAB PO PRN (08:07)
[2016-11-11] MEDS: IBUPROFEN 600 MG TAB PO PRN (08:08)
[2016-11-11] MEDS: oxyCODONE/ACETAMINOPHEN 5 MG/325 MG TAB PO PRN (08:08)
--- NOTE | 2016-11-11 10:25 | HHI.OB ---
Subjective Post Operative Day: 3 Remarks POD#3; Doing well Objective Vitals/I&O Vital Signs Date Time Temp Pulse Resp B/P Pulse Ox O2 Delivery O2 Flow Rate FiO2 11/10/16 21:45 18 11/10/16 21:45 18 Result Diagram: 11/10/16 0503 11/10/16 0503 Objective Remarks GENERAL: Well-nourished, well-developed patient. Resting in bed. CARDIOVASCULAR: Regular rate and rhythm without murmurs, gallops, or rubs. RESPIRATORY: Breath sounds equal bilaterally. No accessory muscle use. ABDOMEN/GI: Abdomen soft, non-tender, bowel sounds present. Incision: Clean, dry and intact. Fundus: Firm, non-tender at umbilicus. GENITOURINARY: Light bleeding. EXTREMITIES: No cyanosis or edema, non-tender, without signs of DVT. Medications and IVs Current Medications Medications (Trade) Dose Ordered Sig/Priti Route Start Time Stop Time Status Last Admin Al Hydrox/Mg Hydrox/ Simethicone 30 ml 30 ml QID PRN PO 11/07/16 09:00 Oxytocin 500 ml @ 0 mls/hr TITRATE IV 11/08/16 10:45 (Lr 1000 ml Inj) 1,000 ml @ 75 mls/hr [id number] IV 11/08/16 15:00 (NS Flush) 2 ml UNSCH PRN IV 11/08/16 15:00 IV Flush 2 ml 2 ml BID IV 11/08/16 21:00 11/10/16 02:07 (Magnesium Sulfate 40 Gm Premix) 1,000 ml @ 50 mls/hr Q20H IV 11/08/16 16:00 11/08/16 17:00 (Calcium Gluconate Inj) 1 gm UNSCH PRN IV PUSH 11/08/16 15:00 (Mylicon Chew) 80 mg QID PRN PO 11/08/16 15:15 (Tylenol) 650 mg Q6H PRN PO 11/08/16 15:15 (Motrin) 600 mg Q6H PRN PO 11/08/16 15:15 11/11/16 08:08 (Percocet 5-325 Mg) 1 tab Q4H PRN PO 11/08/16 15:15 11/10/16 20:31 (Percocet 5-325 Mg) 2 tab Q4H PRN PO 11/08/16 15:15 11/11/16 08:08 (Denise-Colace) 2 tab Q12H PRN PO 11/08/16 15:15 11/11/16 08:07 (Zofran Inj) 4 mg Q6H PRN IV PUSH 11/08/16 15:15 Assessment/Plan Problem List: (1) delivery delivered (2) Pre-eclampsia during in third trimester, antepartum (3) Decreased movement affecting management of in third trimester (4) Gestational [-induced] hypertension without significant proteinuria , third trimester (5) Abnormal glucose tolerance affecting , antepartum Assessment and Plan 26 [id number] POD#2 s/p primary cd for failed iol and pre-eclampsia at 37 wks POD#3 - cont routine care, encourage ambulation; BP normal since delivery Plan discharge home today Discharge Planning routine, Wednesday11/11/15 Attending Attestation Seen by Bob Torres MD Nov 11, 2016 10:25
== END 2016-11-11 14:48 | disposition home or self-care (01) | DRG 765 ==
LOC: H2EA 20:24 → H2EB 11-07 22:58 → H2EA 11-08 16:00 → H1EA 11-09 10:39
PROVIDERS: ADMIT Obstetrics & Gynecology; ATTEND Obstetrics & Gynecology
PROC: 3E033VJ Introduction of Other Hormone into Peripheral Vein, Percutaneous Approach (ICD-10-PCS; 2016-11-05)
PROC: 10D00Z1 Extraction of Products of Conception, Low, Open Approach (ICD-10-PCS; principal; 2016-11-08)
DX: O14.94 Unspecified pre-eclampsia, complicating childbirth (principal); O98.52 Other viral diseases complicating childbirth; O99.814 Abnormal glucose complicating childbirth; J45.909 Unspecified asthma, uncomplicated; O61.9 Failed induction of labor, unspecified; O36.8130 Decreased fetal movements, third trimester, not applicable or unspecified; O99.52 Diseases of the respiratory system complicating childbirth; O9A.22 Injury, poisoning and certain other consequences of external causes complicating childbirth; T48.0X5A Adverse effect of oxytocic drugs, initial encounter; Y92.230 Patient room in hospital as the place of occurrence of the external cause; Z37.0 Single live birth; Z3A.37 37 weeks gestation of pregnancy
CPT/HCPCS: 59025; 80048; 80053; 81001; 82340; 82570; 84157; 84450; 84460; 84550; 85025; 85027; 86850; 86900; 86901; 90715; J0131; J0690; J1200; J2274; J2405; J2590; J3010; J3105; J3475; J7120